=== PATIENT | male | born 1960 | race Caucasian/White ===

== ENCOUNTER 2025-03-02 06:30 | Day surgery (SDC) | payer MEDICARE, SELFPAY | END 2025-03-02 08:41 | disposition home or self-care (01) | LOC: GI 06:30 | PROVIDERS: ATTENDING PHYSICIAN Internal Medicine | DX: Z12.11 Encounter for screening for malignant neoplasm of colon (principal); K64.8 Other hemorrhoids; D12.0 Benign neoplasm of cecum; D12.2 Benign neoplasm of ascending colon; D12.3 Benign neoplasm of transverse colon; K63.5 Polyp of colon; Z80.0 Family history of malignant neoplasm of digestive organs | CPT/HCPCS: 45385; 45380; 88305 ==

== ENCOUNTER 2025-05-31 17:34 | Emergency (ER) | payer MEDICARE, OTHER, SELFPAY ==
[2025-05-31 17:47] VITALS: BP 141/81
--- NOTE | 2025-05-31 21:31 | ED.SKININJ ---
HPI-Injury
General
Chief Complaint: Fall
Source: patient
Exam Limitations: none
Time Seen by Provider: 05/31/25 20:44
Nursing documentation reviewed up to this point in time: agreed with
History of Present Illness-Injury
Initial Injury comments:
65-year-old male with no significant past medical history presents after falling off a ladder from 3 rungs up while he was working on a property that he owns he states he scraped his right murillo on the rung of the ladder as well as his right knee
then fell to the ground scraping his left elbow landing on outstretched both hands and presents with pain swelling and mild ecchymosis of the thenar eminence of the right hand and to a lesser extent of the thenar eminence of the left hand, and his
forehead hit the ground causing a laceration just above his left eyebrow. There was no loss of consciousness, he was able to get right up, he drove home. He denies neck pain. He has been able to walk without any pain in his legs or hips. He
denies back pain, chest pain or abdominal pain. He denies nausea. He is unsure of his last tetanus immunization.
Past History
Past History
ED Past Medical History: None
ED Past Surgical History: Other (Hernia repair)
Social History
Tobacco: Non-smoker
Personal:
Review of Systems
Review of Systems
Allergies reviewed?: Yes
All Other Systems: ROS reviewed and negative except as documented in HPI and ROS
Phy Exam
Physical Exam
Physical Exam:
GENERAL: No acute distress. A&Ox3.
CONSTITUTIONAL: Afebrile.
EYES: clear, conjunctivae normal, EOMs intact, PERRL, dark purple ecchymosis inner left eyelid
ENMT: moist mucus membranes, Pharynx nl, TMs normal
RESPIRATORY: Regular respirations, nonlabored, lungs clear.
CARDIOVASCULAR: Regular rate and rhythm, no murmurs, no rubs.
GI: Soft, nontender, normal BS
MUSCULOSKELETAL: No spinal bony tenderness. Moving all extremities well with no bony tenderness. Both hands and wrists are without bony tenderness and with full range of motion. There is mild swelling and ecchymosis and tenderness of bilateral
thenar eminences. moves with ease. Well perfused.
SKIN: Warm, dry, pink, deep clean abrasion right lower murillo, right knee, left elbow.
PSYCH: Normal mood and affect. Well kept, interactive and appropriate
NEUROLOGIC: Awake, alert and oriented. No focal neurological deficits
Course
Orders/Labs/Results
Orders:
Orders
05/31/25 21:24
Tetanus/Diphth/Acelpertussis [Adacel] 0.5 ml IM .ONCE ONE
Vital Signs
Initial and Last Documented VS:
Initial Vital Signs
Temp Pulse Resp BP Pulse Ox
98 F 69 16 141/81 98
05/31/25 17:47 05/31/25 17:47 05/31/25 17:47 05/31/25 17:47 05/31/25 17:47
Last Documented Vital Signs
Temp Pulse Resp BP Pulse Ox
98 F 69 16 141/81 98
05/31/25 17:47 05/31/25 17:47 05/31/25 17:47 05/31/25 17:47 05/31/25 21:38
Procedures
Laceration Closure
Just above left eyebrow medial aspect:
Status of Wound: clean
Size of Wound in cm: 1
Description of Wound Edges: sharp and surrounded by abrasion
Preparation: cleaned with saline
Anesthesia: 1% Lidocaine with epi
Revision/Debridement: routine- no revision
Wound exploration: explored to base- no FB
Type of Closure: Dermabond-skin glue (Reinforced with skin adhesive and Steri-Strips)
MDM/Problems Addressed
Differential Diagnosis Includes:
Concussion
MDM/Problems Addressed:
65-year-old male with no significant past medical history presents after falling off a ladder from 3 rungs up while he was working on a property that he owns he states he scraped his right murillo on the rung of the ladder as well as his right knee
then fell to the ground scraping his left elbow landing on outstretched both hands and presents with pain swelling and mild ecchymosis of the thenar eminence of the right hand and to a lesser extent of the thenar eminence of the left hand, and his
forehead hit the ground causing a laceration just above his left eyebrow. There was no loss of consciousness, he was able to get right up, he drove home. He denies neck pain. He has been able to walk without any pain in his legs or hips. He
denies back pain, chest pain or abdominal pain. He denies nausea. He is unsure of his last tetanus immunization.
Laceration on forehead wound edges well-approximated with wound glue, skin adhesive and Steri-Strips applied
Abrasions cleansed and antibiotic and dressings applied
Tdap updated
Patient is out of bed and ambulating well, full range of motion of spine to rotation of torso and bending to touch toes and standing again.
No sign of concussion
*Pulse Oximetry
SaO2: 98
Oxygen Mode of Delivery: Room air
Patient hypoxic: not evaluated
*Critical Care Note
Total Time (30-74mins, 75-104mins- exclusive of procedures): Not Applicable
ED Attending Note
-
Portions of this chart may have been created with voice recognition software.� Occasional wrong word or��sound alike� substitutions may have occurred due to the inherent limitations of voice recognition software.
Discharge Plan
Departure
Patient Disposition: Home (Routine Discharge)
Date of Disposition: 05/31/25
Time of Disposition: 21:38
Patient with high blood pressure during this ER visit?: No
Condition: Good
Discharge Problem:
Forehead laceration, Fall from ladder, Abrasion of right leg, Abrasion of left elbow, Abrasion of chest wall
Instructions: Laceration Repair With Glue (DC), Head Injury in Adults (DC), Skin Abrasions (DC)
Prescriptions:
No Action
cephalexin 500 MG capsule
500 mg PO QID Qty: 40 0RF
Referrals:
Tyler Nath MD [Family Provider, Internal Medicine] - As needed
Activity Restrictions/Additional Instructions:
As we discussed, you may briefly wet the glued area in the shower. Just do not rub it or apply any ointments. If the strips have not fallen off by 5 days you may remove them.
Cleanse abrasions daily, apply antibiotic ointment and fresh Band-Aids as needed.
You sprained of the muscles at the base of your thumbs, cold compress 20 minutes off and on for the next 2 days to any sore or swollen areas.
Tylenol ibuprofen as needed for pain.
You may feel more stiff and sore over the next day or 2 as this is not unusual after a fall
Interventions
Interventions:
*Risk Screen - Suicide Last Done: 05/31/25 17:49
*General Assessment Last Done: 05/31/25 21:07
*Neglect/Abuse Screening Last Done: 05/31/25 17:49
*ED- Fall Risk Assessment Last Done: 05/31/25 21:07
*Nursing Disposition Last Done: 05/31/25 22:02
ED-Musculoskeletal Assessment Last Done: 05/31/25 21:33
ED- Neurological Assessment Last Done: 05/31/25 21:07
ED-Skin Assessment Last Done: 05/31/25 21:34
Discharge Date and Time
Discharge Date/Time: 05/31/25 22:02
Print Language: MALAY
[2025-05-31] MEDS: ADACEL 0.5 ML IM (21:47)
== END 2025-05-31 22:02 | disposition home or self-care (01) ==
LOC: EMR 17:34
PROVIDERS: EMERGENCY PHYSICIAN Emergency Medicine; FAMILY PHYSICIAN Internal Medicine Geriatric Medicine
DX: S01.81XA Laceration without foreign body of other part of head, initial encounter (principal); S50.312A Abrasion of left elbow, initial encounter; S60.221A Contusion of right hand, initial encounter; S60.222A Contusion of left hand, initial encounter; S20.319A Abrasion of unspecified front wall of thorax, initial encounter; S80.811A Abrasion, right lower leg, initial encounter; S80.01XA Contusion of right knee, initial encounter; W11.XXXA Fall on and from ladder, initial encounter; Z23 Encounter for immunization
CPT/HCPCS: 90471; 12011; 90715; 99282